=== PATIENT | female | born 1990 | race Caucasian/White ===

== ENCOUNTER 2022-12-12 16:57 | Emergency (ER) | payer OTHER, MEDICAID ==
[~2022-12-12] VITALS: Ht 154.9 cm; Wt 52.7 kg
[2022-12-12 19:19] VITALS: BP 121/81
[2022-12-12] MEDS ORDERED: ONDA4TAB12 PO (20:20)
[2022-12-12] MEDS: ondansetron 4mg rapidly disintigrating tab PO ONE ×2 (20:29→20:31)
== END 2022-12-12 20:45 | disposition home or self-care (01) ==
LOC: ER 16:59
DX: S30.0XXA Contusion of lower back and pelvis, initial encounter (principal); S09.90XA Unspecified injury of head, initial encounter; V00.311A Fall from snowboard, initial encounter; Y93.23 Activity, snow (alpine) (downhill) skiing, snowboarding, sledding, tobogganing and snow tubing; Y92.89 Other specified places as the place of occurrence of the external cause; Y99.8 Other external cause status
CPT/HCPCS: 99284